=== PATIENT | male | born 1995 | race African-American/Black ===

== ENCOUNTER 2018-04-11 01:32 | Emergency (ER) | payer OTHER ==
--- NOTE | 2018-04-11 01:46 | EDPHY ---
H & P Stated Complaint: LSD,ETOH,MJ USE STARTED 04/09 Source: Patient - Personal History Current Tetanus Diphtheria and Acellular Pertussis (TDAP): Unsure - Medical/Surgical History Other PMH: UNK - Social History Smoking Status: Never smoked Time Seen by Provider: 04/11/18 01:46 HPI/ROS: HPI CHIEF COMPLAINT: Polysubstance abuse, not acting appropriately. HISTORY OF PRESENT ILLNESS: 22-year-old male, presents emergency room by private vehicle with his friends. They brought him to the emergency room late at night this evening as he has not been acting appropriately. On Cristel he did LSD, marijuana, alcohol. He is visiting his friends from [place]. He got intoxicated and then they all came back from [place] after they were at a music festival. Throughout the day today he has been rather quiet however still eating and drinking and doing activities but very reserved. His friends at bedside reports that he often gets reserved after he does drugs or during drug use and gets quiet however it has never lasted this long. He arrives to the emergency room very quiet however is able to answer simple questions yes and no does tell me that he is from [place]. However at times he does not answer questions appropriately stairs off into space, and at times makes nonsensical speech. No traumatic injury reported. Time of Ingestion unkown. Unkown amount of benzos/adderall. Past Medical History: Denies significant medical history Past Surgical History: Denies significant surgical history Social History: Recent use of polysubstance abuse including marijuana, alcohol on LSD. From [place]. Visiting friends. Family History: Noncontributory ROS REVIEW OF SYSTEMS: 10 Systems were reviewed and negative with the exception of the elements mentioned in the history of present illness. Exam Constitutional triage nursing summary reviewed, vital signs reviewed, awake/ alert. Eyes normal conjunctivae and sclera, EOMI, PERRLA. HENT normal inspection, atraumatic, moist mucus membranes, no epistaxis, neck supple/ no meningismus, no raccoon eyes. Respiratory clear to auscultation bilaterally, normal breath sounds, no respiratory distress, no wheezing. Cardiovascular rate normal, regular rhythm, no murmur, no edema, distal pulses normal. Gastrointestinal soft, non-tender, no rebound, no guarding, normal bowel sounds, no distension, no pulsatile mass. Genitourinary no CVA tenderness. Musculoskeletal no midline vertebral tenderness, full range of motion, no calf swelling, no tenderness of extremities, no meningismus, good pulses, neurovascularly intact. Skin pink, warm, & dry, no rash, skin atraumatic. Neurologic alert and oriented x1 at this time, moves all 4 extremities equally , motor intact, sensory intact, CN II-XII intact, normal cerebellar, normal vision, normal speech. Psychiatric stairs and space at times. Does not answer questions appropriately at times. Heme/Lymph/Immune no lymphadenopathy. Differential Diagnosis: Includes but is not limited to in a particular order underlying drug intoxication, LSD intoxication, intracranial bleed, subdural, ongoing intoxication, electrolyte disturbance, altered mental status, underlying mental illness Medical Decision Making: Plan for this patient IV establishment blood draw check electrolytes, gentle IV fluids, CT scan head without contrast, drug screen , re-evaluate. Re-evaluation: CT scan head without contrast negative for acute traumatic injury or bleed called to me by Dr. Miller Urine drug screen pending. Patient re-evaluated 2:45 a.m. Talking to himself, bizarre thought process. 5 mg of p.o. Zyprexa ordered. He seems to be responding to internal stimuli possible due to LSD intoxication. 0257AM: Patient screaming, screaming in the Er "Fuck you" Screaming over and over. I have asked him multiple times to please stop screaming in the Er and to stop yelling/cursing. He continues to scream, and continues to yell and disturb the Er. Zyprexa 5mg po x 2 ordered. 0307: Patient becoming increasingly agitated and angry, command having kicking and stopping. Security at bedside. Patient moved to ER room 19. 2 mg IV Ativan ordered. 0700AM: Patient sleeping. Patient signed over to Dr. Taylor, re-eval in am. Patient received 2 mg IV Ativan and 10 mg p.o. Zyprexa for acute agitation, and intoxication on LSD. Patient need to be re-evaluated this morning once he is more sober. If still acutely psychotic may need mental health evaluation. (Arnulfo Fam) Constitutional: Initial Vital Signs Temperature (C) 37.0 C 04/11/18 01:37 Heart Rate 80 04/11/18 01:37 Respiratory Rate 16 04/11/18 01:37 Blood Pressure 132/79 H 04/11/18 01:37 O2 Sat (%) 96 04/11/18 01:37 O2 Delivery Mode Nasal Cannula Allergies/Adverse Reactions: Unable to Assess Allergy (Unverified 04/11/18 01:36) Home Medications: Medication Instructions Recorded NK [No Known Home Meds] 04/11/18 Medical Decision Making - Diagnostics Imaging Results: Imaging Impressions Head CT 04/11/18 01:57 Impression: Normal noncontrast CT of the brain. The study was performed as an emergency on-call case and discussed by telephone with Dr. Tim Monsalve at 2:30 AM hrs. The final interpretation is concordant with the original communication. Other Provider: Patient signed out to me at 0700. He has been evaluated by mental health as of 999. They feel he is sober now and that his presentation is consistent with hallucinogen use, and recommend discharge. (Angel Taylor) - Data Points Laboratory Results: Laboratory Results 04/11/18 02:00 04/11/18 02:00 04/11/18 04/11/18 04/11/18 03:47 02:00 02:00 WBC 6.52 10^3/uL 10^3/uL (3.80-9.50) RBC 4.88 10^6/uL 10^6/uL (4.40-6.38) Hgb 14.4 g/dL g/dL (13.7-17.5) Hct 43.2 % % (40.0-51.0) MCV 88.5 fL fL (81.5-99.8) MCH 29.5 pg pg (27.9-34.1) MCHC 33.3 g/dL g/dL (32.4-36.7) RDW 13.6 % % (11.5-15.2) Plt Count 254 10^3/uL 10^3/uL (150-400) MPV 7.8 fL L fL (8.7-11.7) Neut % (Auto) 56.3 % % (39.3-74.2) Lymph % (Auto) 26.8 % % (15.0-45.0) [place] % (Auto) 14.6 % H % (4.5-13.0) Eos % (Auto) 1.2 % % (0.6-7.6) Baso % (Auto) 0.9 % % (0.3-1.7) Nucleat RBC Rel Count 0.0 % % (0.0-0.2) Absolute Neuts (auto) 3.67 10^3/uL 10^3/uL (1.70-6.50) Absolute Lymphs (auto) 1.75 10^3/uL 10^3/uL (1.00-3.00) Absolute Monos (auto) 0.95 10^3/uL H 10^3/uL (0.30-0.80) Absolute Eos (auto) 0.08 10^3/uL 10^3/uL (0.03-0.40) Absolute Basos (auto) 0.06 10^3/uL 10^3/uL (0.02-0.10) Absolute Nucleated RBC 0.00 10^3/uL 10^3/uL (0-0.01) Immature Gran % 0.2 % % (0.0-1.1) Immature Gran # 0.01 10^3/uL 10^3/uL (0.00-0.10) Sodium 138 mEq/L mEq/L (135-145) Potassium 3.7 mEq/L mEq/L (3.5-5.2) Chloride 104 mEq/L mEq/L (97-110) Carbon Dioxide 25 mEq/l mEq/l (22-31) Anion Gap 9 mEq/L mEq/L (6-14) BUN 14 mg/dL mg/dL (7-23) Creatinine 0.8 mg/dL mg/dL (0.7-1.3) Estimated GFR > 60 Glucose 99 mg/dL mg/dL (70-100) Calcium 9.6 mg/dL mg/dL (8.5-10.4) Urine Opiates Screen NEGATIVE (NEGATIVE) Urine Barbiturates NEGATIVE (NEGATIVE) Ur Phencyclidine Scrn NEGATIVE (NEGATIVE) Ur Amphetamine Screen NEGATIVE (NEGATIVE) U Benzodiazepines Scrn NEGATIVE (NEGATIVE) Urine Cocaine Screen NEGATIVE (NEGATIVE) U Marijuana (THC) Screen NON-NEGATIVE H (NEGATIVE) Ethyl Alcohol < 10 mg/dL mg/dL (0-10) Medications Given: Discontinued Medications Sodium Chloride (Ns) 1,000 mls @ 0 mls/hr IV ONCE ONE PRN Reason: Wide Open Stop: 04/11/18 02:05 Last Admin: 04/11/18 02:12 Dose: 1,000 mls Lorazepam (Ativan Injection) 2 mg IVP EDNOW ONE Stop: 04/11/18 03:07 Last Admin: 04/11/18 03:06 Dose: 2 mg Olanzapine (Olanzapine) 5 mg PO ONCE ONE Stop: 04/11/18 02:49 Last Admin: 04/11/18 03:03 Dose: 5 mg Olanzapine (Olanzapine) 5 mg PO ONCE ONE Stop: 04/11/18 02:57 Last Admin: 04/11/18 03:03 Dose: 5 mg Olanzapine (Zyprexa Zydis) 10 mg PO EDNOW ONE Stop: 04/11/18 02:59 Last Admin: 04/11/18 03:03 Dose: Not Given Departure - Departure Disposition: Home, Routine, Self-Care Clinical Impression: Substance abuse Condition: Good Instructions: Polysubstance Abuse (ED) Referrals: NONE *PRIMARY CARE P,. [Primary Care Provider] - As per Instructions
[2018-04-11] MEDS ORDERED: NS 1,000 ML IV ONE (02:04)
[2018-04-11 02:10] LABS: PLATELET COUNT 254 10^3/uL (150-400)
[2018-04-11] MEDS ORDERED: OLANZapine DISINTEGR 5 MG TAB ONE ×2 (02:46→02:56)
[2018-04-11] MEDS ORDERED: OLANZapine 5 MG TAB PO ONE ×2 (02:48→02:56)
[2018-04-11] MEDS ORDERED: OLANZapine DISINTEGR 10 MG TAB PO ONE (02:58)
[2018-04-11] MEDS ORDERED: LORazepam 2 MG/ML INJ IVP ONE (03:06)
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
[2018-04-11 10:06] VITALS: BP 121/84
== END 2018-04-11 10:17 | disposition home or self-care (01) ==
DX: F19.10 Other psychoactive substance abuse, uncomplicated (principal); R46.89 Other symptoms and signs involving appearance and behavior
CPT/HCPCS: 80305; 96374; G0480; J2060